=== PATIENT | female | born 1945 | race Caucasian/White ===

== ENCOUNTER 2020-12-03 11:24 | Emergency (ER) | payer OTHER ==
[~2020-12-03] VITALS: Ht 170.2 cm; Wt 81.6 kg
[2020-12-03] MEDS ORDERED: TOPROL XL200 MG (11:36)
[2020-12-03] MEDS ORDERED: ZESTORETIC 10-1 EACH (11:36)
[2020-12-03] MEDS ORDERED: FORTAMET1000 MG (11:36)
[2020-12-03] MEDS ORDERED: GLIMEPIRIDE4 MG (11:37)
[2020-12-03] MEDS ORDERED: NORVASC2.5 MG (11:37)
[2020-12-03] MEDS ORDERED: CILOSTAZOL50 MG (11:37)
[2020-12-03] MEDS ORDERED: CRESTOR5 MG (11:37)
[2020-12-03] MEDS ORDERED: LANTUS SOL100 UNIT/1 (11:38)
[2020-12-03] MEDS ORDERED: NASAL MIST126 ML NASAL (19:35)
[2020-12-03] MEDS ORDERED: MACROBID 100 M100 MG PO (19:35)
== END 2020-12-03 19:58 | disposition home or self-care (01) ==
LOC: ER 11:24
DX: R14.0 Abdominal distension (gaseous) (principal); E13.9 Other specified diabetes mellitus without complications; I10 Essential (primary) hypertension; Z79.4 Long term (current) use of insulin

== ENCOUNTER 2023-02-12 16:44 | Inpatient (IN) | payer OTHER ==
[~2023-02-12] VITALS: Ht 170.2 cm; Wt 83.9 kg
[~2023-02-12 16:44] MED LIST: CILOSTAZOL50 MG; CRESTOR5 MG; FORTAMET1000 MG; GLIMEPIRIDE4 MG; LANTUS SOL100 UNIT/1; MACROBID 100 M100 MG PO; NASAL MIST126 ML NASAL; NORVASC2.5 MG; TOPROL XL200 MG; ZESTORETIC 10-1 EACH
[2023-02-13] MEDS ORDERED: ZESTORETIC 20-1 EAC1 PO (10:12)
[2023-02-13] MEDS ORDERED: CILOSTAZOL50 MG PO (10:13)
[2023-02-13] MEDS ORDERED: CRESTOR40 MG PO (10:13)
[2023-02-13] MEDS ORDERED: GLUCOT PO (10:13)
[2023-02-13] MEDS ORDERED: NORVASC5 MG (10:14)
[2023-02-13] MEDS ORDERED: ZETIA10 MG PO (10:14)
[2023-02-13] MEDS ORDERED: LANTUS (10:15)
[2023-02-19] MEDS ORDERED: GLIPIZIDE XL10 MG (11:44)
[2023-02-19] MEDS ORDERED: METFORMIN HCL1000 M3 (11:44)
[2023-02-26] MEDS ORDERED: INTESTINEX680 M1 PO (10:28)
[2023-02-26] MEDS ORDERED: NEURONTIN300 MG PO (10:28)
[2023-02-26] MEDS ORDERED: ACETAMINOPHEN500 M2 PO (10:28)
== END 2023-02-26 15:15 | disposition home or self-care (01) | DRG 327 ==
LOC: O/R 02-19 08:03 → SURH 02-19 08:30 → SURG 02-19 13:14 → SURH 02-19 13:15 → SURG 02-26 15:15
PROVIDERS: ADMIT Surgery; ATTEND Surgery
PROC: 0DTF4ZZ Resection of Right Large Intestine, Percutaneous Endoscopic Approach (ICD-10-PCS; 2023-02-19)
PROC: 07BB4ZZ Excision of Mesenteric Lymphatic, Percutaneous Endoscopic Approach (ICD-10-PCS; 2023-02-19)
PROC: 0DBU4ZZ Excision of Omentum, Percutaneous Endoscopic Approach (ICD-10-PCS; 2023-02-19)
PROC: 02HV33Z Insertion of Infusion Device into Superior Vena Cava, Percutaneous Approach (ICD-10-PCS; 2023-02-19)
PROC: 0DQ64ZZ Repair Stomach, Percutaneous Endoscopic Approach (ICD-10-PCS; principal; 2023-02-19 13:15)
DX: C18.2 Malignant neoplasm of ascending colon (principal); K91.71 Accidental puncture and laceration of a digestive system organ or structure during a digestive system procedure; I11.0 Hypertensive heart disease with heart failure; E11.9 Type 2 diabetes mellitus without complications; Z79.4 Long term (current) use of insulin; D50.0 Iron deficiency anemia secondary to blood loss (chronic); E78.00 Pure hypercholesterolemia, unspecified